=== PATIENT | female | born 1995 | race Caucasian/White ===

== ENCOUNTER 2018-08-02 17:57 | Emergency (ER) | payer OTHER, SELFPAY ==
[2018-08-02 18:23] VITALS: BP 129/56; PULSE 88; RESP 18; TEMP 36.8; O2SAT 100; BMI 34.9
--- NOTE | 2018-08-02 18:44 | ED.SKABFB ---
HPI - Skin/Abscess/Foreign Bdy General Chief complaint: Skin/Abscess/Foreign Body Stated complaint: rash on stomach and on back of legs Time Seen by Provider: 08/02/18 18:38 Source: patient Mode of arrival: ambulatory Limitations: no limitations History of Present Illness HPI narrative: Patient is a 23-year-old female presenting with abdomen and thighs. It has been there for 2 days. She complains of pruritus. She is sleeping in a hotel is. No else in the family has any rash or bites. It does not seem to be spreading. She says at night it is much worse. They have 2 more nights in the hotel. complaint: rash Onset (ago): day(s) (2) Severity: moderate Quality: pruritic Relieving factors: none Associated symptoms: denies other symptoms Treatments prior to arrival: none Related Data Previous Rx's Medication Instructions Recorded prednisone 40 mg PO DAILY #8 tab 08/02/18 Allergies Allergy/AdvReac Type Severity Reaction Status Date / Time aspirin Allergy Verified 08/02/18 18:22 morphine Allergy Verified 08/02/18 18:22 Review of Systems Review of Systems GENERAL: Denies chills,fever HEENT: Denies throat pain RESPIRATORY: Denies dyspnea, cough, wheezing CARDIOVASCULAR: Denies chest pain, palpitations GASTROINTESTINAL: Denies nausea, vomiting MUSCULOSKELETAL: Denies extremity pain, injury SKIN: See HPI NEUROLOGIC: Denies weakness, dizziness, headache, numbness 8 point review of systems is negative except for those stated above and HPI PFSH Medical History Patient denies significant medical history (Acute) Social History Smoking Status: Never smoker Social History Smoking Status: Never smoker Exam Initial Vital Signs Initial Vital Signs: Vital Signs Temperature 98.3 F 08/02/18 18:23 Pulse Rate 88 08/02/18 18:23 Respiratory Rate 18 08/02/18 18:23 Blood Pressure 129/56 L 08/02/18 18:23 Pulse Oximetry 100 08/02/18 18:23 GENERAL: Well-appearing, well-nourished and in no acute distress. CARDIOVASCULAR: peripheral pulses in tact, cap refill <2 sec RESPIRATORY: No respiratory distress, speaks in full sentences without difficulty [ABDOMEN: Soft, nontender, no guarding or rebound] EXTREMITIES: Normal range of motion, no clubbing or edema. Neurovascularly intact NEUROLOGICAL: Cranial nerves II through XII grossly intact. Normal gait and speech. SKIN: Urticaria noted on anterior abdomen very minimal on the back. No rash on arms. No bites between the webs of the fingers Course Orders Ordered: Discontinued Medications Prednisone (Deltasone) 40 mg PO NOW ONE Stop: 08/02/18 18:45 Last Admin: 08/02/18 18:49 Dose: 40 mg Vital Signs - 8 hr 08/02/18 18:23 Temperature 98.3 F Pulse Rate 88 Respiratory Rate 18 Blood Pressure 129/56 L Pulse Oximetry 100 Discharge Plan Departure Patient Disposition: Home Clinical Impression: Urticaria Discharge Date/Time: 08/02/18 18:59 Interventions: ED Discharge Assessment Last Done: 08/02/18 18:58 Instructions: Contact Dermatitis Activity Restrictions/Additional Instructions: *You have been diagnosed with allergic reaction likely from sheets/ hotel *What to do: Rash will not go away until allergy in has been removed. *Continue to take medications as directed Prednisone 40 mg once a day 5 days total Benadryl 25-50 mg every 6 hr as needed for itching *Follow up with your primary care provider in 2-3 days *Return to ER if you should have increasing rash, difficulty breathing, tongue swelling, lip swelling or any new, worsening or concerning symptoms Prescriptions: New prednisone 20 mg tablet 40 mg PO DAILY Qty: 8 RF: 0
[2018-08-02] MEDS: predniSONE 20 MG TABLET 40 MG PO (18:49)
== END 2018-08-02 18:59 | disposition home or self-care (01) ==
PROVIDERS: Emergency Provider Emergency Medicine
DX: L25.9 Unspecified contact dermatitis, unspecified cause (principal)
CPT/HCPCS: 99282; 99283

== ENCOUNTER 2018-08-03 17:07 | Emergency (ER) | payer OTHER, SELFPAY ==
[2018-08-03 17:09] VITALS: BP 130/84; PULSE 100; RESP 14; TEMP 36.9; O2SAT 100; BMI 34.9
== END 2018-08-03 21:06 | disposition left against medical advice (07) ==
PROVIDERS: Emergency Provider Nurse Practitioner Family
DX: R21 Rash and other nonspecific skin eruption (principal)
CPT/HCPCS: 99281